=== PATIENT | female | born 1980 | race Caucasian/White ===

== ENCOUNTER 2017-04-13 12:55 | Outpatient (CLI) | payer OTHER ==
--- NOTE | 2017-04-13 15:31 | DIAGNOSTIC IMAGING REPORT ---
PROCEDURE: US OB 1ST TRIMESTER W/TRANSVAG INDICATION: VIABILITY TECHNIQUE: Cabrera scale, color, and spectral Doppler transabdominal and endovaginal sonographic images of the first trimester gravid uterus were obtained. COMPARISON: None. FINDINGS: TRANSABDOMINAL SCANS: Anteverted, vertically oriented, enlarged uterus contains an oblong, central line located fundal gestational sac with surrounding heterogeneous echogenicity. Small perigestational hematoma encompassing about 20 % of sac circumference. The fetus was not seen. Right adnexa is unremarkable. The left ovary measures about 2.7 cm. TRANSVAGINAL SCANS: There is a small amount of hyperechoic material within the endocervix. The vertically oriented uterus contains an oblong gestational sac with an average sac diameter of 2.5 cm. There is a single thin septation within the gestational sac which may be remnants of an abnormal yolk sac or unfused amnion. A pole is not identified. IMPRESSION: 1. Nonviable intrauterine . Abnormal-appearing gestational sac and no evidence of pole. 2. Heterogeneous hyper echogenicity surrounding the gestational sac and a small amount of echogenic material within the cervix consistent with hemorrhage. This is likely evidence of spontaneous in progress. 3. Normal left ovary and nonvisualization of the maternal right ovary. 4. Findings discussed with Bobbi Renee in the office of Lauren Sage.
== END 2017-04-13 23:00 ==
LOC: US SRH 12:55
DX: Z03.79 Encounter for other suspected maternal and fetal conditions ruled out (principal)